=== PATIENT | male | born 1975 | race Hispanic/Latino ===

== ENCOUNTER 2021-09-05 15:31 | Emergency (ER) | payer SELFPAY ==
[2021-09-05 16:19] LABS: Hematocrit 38.4 % (42-50); Hemoglobin 12.7 gm/dl (12.5-18.0); Mean Cell Volume 86.5 fl (78-100); Mean Corpuscular Hemoglobin 28.6 pg (26-32); Mean Corpuscular Hgb Concent. 33.1 g/dl (32-36); Mean Platelet Volume 10.1 fl (7.5-11.0); Platelet Count 213 K/mm3 (150-450); Red Blood Count 4.44 M/mm3 (4.1-5.6); Red Cell Distribution Width 13.1 % (11.5-14.0); White Blood Count 7.1 K/mm3 (4.0-10.5)
--- NOTE | 2021-09-05 16:36 | XRAY ---
Indication: Trauma. Comparison: None 3 view right wrist demonstrates mildly displaced and posterior angulated comminuted fracture distal radius with intra-articular extension and soft tissue swelling. Elsewhere osteopenia and mild 1st metacarpal multangular degenerative changes.
[2021-09-05 16:55] LABS: ALBUMIN 4.4 g/dL (3.5-5.0); ALKALINE PHOSPHATASE 85 U/L (38-126); AMYLASE 85 U/L (30-110); ANION GAP 11.7 MEQ/L (5-15); BLOOD UREA NITROGEN 16 mg/dL (9-20); CHLORIDE 102 mmol/L (98-107); Calcium 9.2 mg/dL (8.4-10.2); Carbon Dioxide 29 mmol/L (22-30); Creatinine 1 0.83 mg/dL (0.66-1.25); EST GLOMERULAR FILTRATION RATE > 60.0 ML/MIN; ETHYL ALCOHOL < 10 mg/dL (0-10); Glucose 139 mg/dL (74-106); LIPASE 160 U/L (23-300); Potassium 3.6 mmol/L (3.5-5.1); SGOT/AST 38 U/L (17-59); SGPT/ALT 22 U/L (0-50); SODIUM 140 mmol/L (137-145); Total Protein 7.3 g/dL (6.3-8.2)
--- NOTE | 2021-09-05 16:55 | ERPHSYRPT ---
- History of Present Illness Source: patient, interpreter translator Exam Limitations: language barrier Patient Subjective Stated Complaint: pt states he fell 8 feet and landed. fell off roof and landed on back and right arm. no loc, no neck pain, co pain to right wrist and pelvis Triage Nursing Assessment: pt alert, resp easy, face mask in place, abd soft, has deformity to right wrist with abrasion, no other bruising or abrasions noted Physician History: 46 yo pt brought in by private vehicle after falling off a roof which he states through interpreter translator complains of R wrist pain and lumbar pain. Pt denies LOC-head injury/C-Tspine pain/chest pain/abdominal pain/LE pain. Method of Injury: fall (Off roof 8ft) Occurred: just prior to arrival Where Injury Occurred: work Loss of Consciousness: no loss of consciousness Pain Location: wrist (R), back (Lumbar) Severity of Pain-Max: moderate Severity of Pain-Current: moderate Modifying Factors: Improves With: movement Associated Symptoms: back pain, extremity injury, No abdominal pain, No confusion, No chest pain, No dizziness, No headache, No lightheadedness, No m uscle spasms, No nausea, No neck pain, No ringing in ears, No seizures, No shortness of breath, No slurred speech, No trouble walking, No vomiting, No vision changes Allergies/Adverse Reactions: Penicillins Allergy (Verified 09/05/21 16:04) Home Medications: No Reportable Medications [No Reported Medications] 09/05/21 [History] Hx Tetanus, Diphtheria Vaccination/Date Given: No Hx Influenza Vaccination/Date Given: No Hx Pneumococcal Vaccination/Date Given: No Immunizations Up to Date: No (unknown) Travel Risk - International Travel Have you traveled outside of the country in past 3 weeks: No - Coronavirus Screening Are you exhibiting any of the following symptoms?: No Close contact with a COVID-19 positive Pt in past 14-21 Days: No - Vaccine Status Have you recieved a Covid-19 vaccination: No - Review of Systems Constitutional: No Symptoms Eyes: No Symptoms Ears, Nose, & Throat: No Symptoms Respiratory: No Symptoms Cardiac: No Symptoms Abdominal/Gastrointestinal: No Symptoms Genitourinary Symptoms: No Symptoms Skin: No Symptoms Neurological: No Symptoms Psychological: No Symptoms Endocrine: No Symptoms Hematologic/Lymphatic: No Symptoms Immunological/Allergic: No Symptoms All Other Systems: Reviewed and Negative - Past Medical History Pertinent Past Medical History: No Neurological History: No Pertinent History ENT History: No Pertinent History Cardiac History: No Pertinent History Respiratory History: No Pertinent History Endocrine Medical History: No Pertinent History Musculoskeletal History: No Pertinent History GI Medical History: No Pertinent History History: No Pertinent History Psycho-Social History: No Pertinent History Male Reproductive Disorders: No Pertinent History - Past Surgical History Past Surgical History: No Neuro Surgical History: No Pertinent History Cardiac: No Pertinent History Respiratory: No Pertinent History Gastrointestinal: No Pertinent History Genitourinary: No Pertinent History Musculoskeletal: No Pertinent History Male Surgical History: No Pertinent History - Social History Smoking Status: Never smoker Exposure to second hand smoke: No Drug Use: none Patient Lives Alone: No Significant Family History: no pertinent family hx Physical Exam - Nursing Vital Signs Nursing Vital Signs: Initial Vital Signs Temperature 97.9 F 09/05/21 18:18 Pulse Rate 89 09/05/21 18:18 Respiratory Rate 20 09/05/21 18:18 Blood Pressure 115/71 09/05/21 18:18 O2 Sat by Pulse Oximetry 98 09/05/21 18:18 Pain Scale Pain Intensity 4 WNL - [place] Coma Score Best Eye Response ([place]): (4) open spontaneously Best Verbal Response ([place]): (5) oriented Best Motor Response ([place]): (6) obeys commands [place] Total: 15 - Physical Exam General Appearance: mild distress (Due to pain) Head Injury: no evidence of injury Eye Exam: bilateral eye: normal inspection, PERRL, EOMI ENT Exam: airway nml, No evidence of ENT injury, No dental injury, No nml ext.inspection, No clear fluid (ears), No clear fluid (nose), No hemotympanum Neck Exam: supple, trachea midline (C-spine NTTP) Respiratory/Chest Exam: chest tenderness, normal breath sounds, respiratory distress Cardiovascular Exam: normal heart sounds, regular rate/rhythm, normal peripheral pulses, No murmur Gastrointestinal Exam: soft, normal bowel sounds Back Exam: vertebral tenderness (Mid/inferior L-spine ttp) Extremity Exam: evidence of injury (R wrist w obvious deformity) Peripheral Pulses: carotid (R): 2+, carotid (L): 2+ Neurologic Exam: alert, oriented x 3, cooperative, cad librarian II-XII nml as tested, normal mood/affect, nml cerebellar function, nml station & gait, sensation nml, No motor deficits, No sensory deficit Skin Exam: normal color, warm, dry - Course Nursing assessment & vital signs reviewed: Yes - Radiology Exams Wrist X-ray Interpretation: Discussed w/ radiologist (R wrist distal comminuted radius fx) - CT Exams Head CT Interpretation: Discussed w/radiologist (WNL) Cervical Spine CT Interpretation: Discussed w/radiologist (No fx/dislocation) Chest CT Interpretation: Discussed w/radiologist (NAD) Abdomen/Pelvis CT Interpretation: Discussed w/radiologist (R inferior pubic rami fx/Small L2 anterior-superior vertebral body fx) Ordered Tests: Active Orders 24 hr Category Date Time Status ABDOMEN AND PELVIS W CONTRAST [CT] Stat Exams 09/05/21 15:57 Completed CERVICAL SPINE WO CONTRAST [CT] Stat Exams 09/05/21 15:59 Completed CHEST WITH CONTRAST [CT] Stat Exams 09/05/21 15:58 Completed HEAD WITHOUT CONTRAST [CT] Stat Exams 09/05/21 15:59 Completed WRIST (MIN 3 VIEWS) Stat Exams 09/05/21 Completed AMYLASE Stat Lab 09/05/21 16:45 Completed CBC W DIFF Stat Lab 09/05/21 15:59 Completed CMP Stat Lab 09/05/21 16:45 Completed ETHYL ALCOHOL Stat Lab 09/05/21 16:45 Completed LIPASE Stat Lab 09/05/21 16:45 Completed Manual Differential NC Stat Lab 09/05/21 15:59 Completed UA W/RFX UR CULTURE Stat Lab 09/05/21 18:45 Completed Urine Triage Profile Stat Lab 09/05/21 18:45 Completed Medication Summary Discontinued Medications Generic Name Dose Route Start Last Admin Trade Name Fei PRN Reason Stop Dose Admin Fentanyl Citrate 50 mcg 09/05/21 17:16 09/05/21 17:22 Fentanyl Citrate 100 Mcg/2 Ml* Vial IV 09/05/21 17:17 50 mcg STAT ONE Administration Fentanyl Citrate Confirm 09/05/21 17:19 Fentanyl Citrate 100 Mcg/2 Ml* Vial Administered 09/05/21 17:20 Dose 100 mcg .ROUTE .STK-MED ONE Ondansetron HCl 4 mg 09/05/21 17:16 09/05/21 17:25 Ondansetron Hcl 4 Mg/2 Ml Vial IV 09/05/21 17:17 4 mg STAT ONE Administration Ondansetron HCl Confirm 09/05/21 17:19 Ondansetron Hcl 4 Mg/2 Ml Vial Administered 09/05/21 17:20 Dose 4 mg .ROUTE .K-MED ONE Lab/Rad Data: Laboratory Result Diagrams 09/05/21 15:59 09/05/21 16:45 Laboratory Results 09/05/21 09/05/21 09/05/21 Range/Units 18:45 18:45 16:45 WBC (4.0-10.5) K/mm3 RBC (4.1-5.6) M/mm3 Hgb (12.5-18.0) gm/dl Hct (42-50) % MCV (78-100) fl MCH (26-32) pg MCHC (32-36) g/dl RDW (11.5-14.0) % Plt Count (150-450) K/mm3 MPV (7.5-11.0) fl Segmented Neutrophils (36.-66.) % Lymphocytes (Manual) (24-44) % Monocytes (Manual) (0.0-12.0) % Platelet Estimate (NORMAL) RBC Morphology Sodium 140 (137-145) mmol/L Potassium 3.6 (3.5-5.1) mmol/L Chloride 102 (98-107) mmol/L Carbon Dioxide 29 (22-30) mmol/L Anion Gap 11.7 (5-15) MEQ/L BUN 16 (9-20) mg/dL Creatinine 0.83 (0.66-1.25) mg/dL Estimated GFR > 60.0 ML/MIN Glucose 139 H (74-106) mg/dL Calcium 9.2 (8.4-10.2) mg/dL Total Bilirubin 0.60 (0.2-1.3) mg/dL AST 38 (17-59) U/L ALT 22 (0-50) U/L Alkaline Phosphatase 85 (38-126) U/L Serum Total Protein 7.3 (6.3-8.2) g/dL Albumin 4.4 (3.5-5.0) g/dL Amylase 85 (30-110) U/L Lipase 160 (23-300) U/L Urine Color YELLOW (YELLOW) Urine Appearance CLEAR (CLEAR) Urine pH 6.0 (5-6) Ur Specific Jeannette 1.047 (1.005-1.025) Urine Protein NEGATIVE (Negative) Urine Ketones NEGATIVE (NEGATIVE) Urine Blood SMALL (0-5) Christian/ul Urine Nitrite NEGATIVE (NEGATIVE) Urine Bilirubin NEGATIVE (NEGATIVE) Urine Urobilinogen NEGATIVE (0-1) mg/dL Ur Leukocyte Esterase NEGATIVE (NEGATIVE) Urine WBC (Auto) NONE (0-5) /HPF Urine RBC (Auto) 3-5 (0-2) /HPF U Epithel Cells (Auto) NONE (FEW) /HPF Urine Bacteria (Auto) NONE (NEGATIVE) /HPF Urine Mucus (Auto) SLIGHT (NEGATIVE) /HPF Urine Culture Reflexed NO (NO) Urine Glucose NEGATIVE (NEGATIVE) mg/dL Urine Opiates Level NEGATIVE (NEGATIVE) Ur Methadone NEGATIVE (NEGATIVE) Urine Barbiturates NEGATIVE (NEGATIVE) Ur Phencyclidine (PCP) NEGATIVE (NEGATIVE) Urine Amphetamine NEGATIVE (NEGATIVE) U Benzodiazepine Level NEGATIVE (NEGATIVE) Urine Cocaine NEGATIVE (NEGATIVE) Urine Marijuana (THC) NEGATIVE (NEGATIVE) Ethyl Alcohol < 10 (0-10) mg/dL 09/05/21 Range/Units 15:59 WBC 7.1 (4.0-10.5) K/mm3 RBC 4.44 (4.1-5.6) M/mm3 Hgb 12.7 (12.5-18.0) gm/dl Hct 38.4 L (42-50) % MCV 86.5 (78-100) fl MCH 28.6 (26-32) pg MCHC 33.1 (32-36) g/dl RDW 13.1 (11.5-14.0) % Plt Count 213 (150-450) K/mm3 MPV 10.1 (7.5-11.0) fl Segmented Neutrophils 73 H (36.-66.) % Lymphocytes (Manual) 25 (24-44) % Monocytes (Manual) 2 (0.0-12.0) % Platelet Estimate NORMAL (NORMAL) RBC Morphology NORMAL Sodium (137-145) mmol/L Potassium (3.5-5.1) mmol/L Chloride (98-107) mmol/L Carbon Dioxide (22-30) mmol/L Anion Gap (5-15) MEQ/L BUN (9-20) mg/dL Creatinine (0.66-1.25) mg/dL Estimated GFR ML/MIN Glucose (74-106) mg/dL Calcium (8.4-10.2) mg/dL Total Bilirubin (0.2-1.3) mg/dL AST (17-59) U/L ALT (0-50) U/L Alkaline Phosphatase (38-126) U/L Serum Total Protein (6.3-8.2) g/dL Albumin (3.5-5.0) g/dL Amylase (30-110) U/L Lipase (23-300) U/L Urine Color (YELLOW) Urine Appearance (CLEAR) Urine pH (5-6) Ur Specific Jeannette (1.005-1.025) Urine Protein (Negative) Urine Ketones (NEGATIVE) Urine Blood (0-5) Christian/ul Urine Nitrite (NEGATIVE) Urine Bilirubin (NEGATIVE) Urine Urobilinogen (0-1) mg/dL Ur Leukocyte Esterase (NEGATIVE) Urine WBC (Auto) (0-5) /HPF Urine RBC (Auto) (0-2) /HPF U Epithel Cells (Auto) (FEW) /HPF Urine Bacteria (Auto) (NEGATIVE) /HPF Urine Mucus (Auto) (NEGATIVE) /HPF Urine Culture Reflexed (NO) Urine Glucose (NEGATIVE) mg/dL Urine Opiates Level (NEGATIVE) Ur Methadone (NEGATIVE) Urine Barbiturates (NEGATIVE) Ur Phencyclidine (PCP) (NEGATIVE) Urine Amphetamine (NEGATIVE) U Benzodiazepine Level (NEGATIVE) Urine Cocaine (NEGATIVE) Urine Marijuana (THC) (NEGATIVE) Ethyl Alcohol (0-10) mg/dL - Progress Progress: improved Progress Note: 09/05/21 18:[address] Ramos 50umg IV Fentanyl/4mg IV Zofran 09/05/21 20:35 Velcro splint R wrist per nursing/NVI Counseled pt/family regarding: lab results, diagnosis, rad results - Departure Departure Disposition: Transfer Clinical Impression: Radius distal fracture, Pubic ramus fracture, Lumbar vertebral fracture Condition: Stable Critical Care Time: Yes Critical Care Time(excluding separately billable procedures): Critical 30-74 mins Referrals: DOCTOR,NO FAMILY [Primary Care Provider] - Follow up/PCP as directed
[2021-09-05] MEDS ORDERED: SUBLIMAZE 100 MCG/2 ML IV ONE (17:16)
[2021-09-05] MEDS ORDERED: Zofran 4 MG/2 ML VIAL IV ONE (17:16)
[2021-09-05] MEDS ORDERED: SUBLIMAZE 100 MCG/2 ML ONE (17:19)
[2021-09-05] MEDS ORDERED: Zofran 4 MG/2 ML VIAL ONE (17:19)
--- NOTE | 2021-09-05 17:25 | XRAY ---
Indication: Status post fall 8 feet. Multiple contiguous axial images obtained through the cervical spine. Sagittal and coronal reformatted images obtained. Comparison: None Axial images negative for acute fracture, suspicious bony lesions, or spinal canal stenosis. Minimal C3-C7 degenerative endplate spurring and mild multilevel bilateral degenerative facet hypertrophy. Sagittal and coronal reformatted images demonstrates lordotic straightening, positional versus paraspinal spasm. Disc spaces maintained. No acute compression fracture, subluxation, or jumped facet. Normal appearing craniocervical junction. Visualized noncontrasted soft tissues are unremarkable. Impression: Multilevel degenerative changes. Remaining CT cervical spine is negative.
--- NOTE | 2021-09-05 17:28 | XRAY ---
Indication: Status post fall 8 feet. Multiple contiguous axial images obtained through the head without contrast. Comparison: None Normal appearing brain parenchyma, ventricles, and bony calvarium. Paranasal sinuses and mastoid air cells are clear. Impression: Normal CT head without contrast exam.
--- NOTE | 2021-09-05 17:29 | XRAY ---
Indication: Status post fall 8 feet. Multiple contiguous axial images obtained through the chest using 100 cc Isovue 370 contrast. Comparison: None There is a 4.3 x 4.0 cm left T5 perineural cyst. Minimal bibasilar dependent atelectasis. No suspicious pulmonary mass, infiltrate, effusion, or pneumothorax. Heart not enlarged. Aorta is normal in course and caliber. No pathologic mediastinal/hilar lymphadenopathy. Bony thorax intact with mild flowing osteophytes throughout the spine. Impression: 1. Large left T5 perineural cyst. 2. Remaining CT chest with contrast exam is negative.
--- NOTE | 2021-09-05 17:35 | XRAY ---
Indication: Status post fall 8 feet. Multiple contiguous axial images obtained through the abdomen and pelvis using 100 cc Isovue 370 contrast. Comparison: None Stomach is distended with food/fluid. Noncontrasted stomach and bowel loops nonobstructed. Mild diffuse scattered colonic fecal debris throughout including rectum. No free fluid/air. Remaining liver, gallbladder, pancreas, spleen, adrenal glands, kidneys, ureters, bladder, and aorta appear unremarkable. No pathologic retroperitoneal lymphadenopathy. Tiny minimally displaced corner fracture involving the anterior superior L2 vertebral body. Also nondisplaced fracture involving the right inferior pubic ramus. Impression: 1. Fractures involving anterosuperior L2 vertebral body and right inferior pubic ramus as detailed. 2. Mild diffuse fecal stasis. 3. Remaining CT abdomen/pelvis with contrast exam is negative.
[2021-09-05 18:57] LABS: Appearance CLEAR (CLEAR); Bilirubin NEGATIVE (NEGATIVE); Blood SMALL Ery/ul (0-5); Glucose NEGATIVE (NEGATIVE); Ketones NEGATIVE (NEGATIVE); Leukocyte Esterase NEGATIVE (NEGATIVE); Mucus SLIGHT /HPF (NEGATIVE); Nitrite NEGATIVE (NEGATIVE); Protein,Urine Dip NEGATIVE (Negative); Specific Gravity 1.047 (1.005-1.025); Urobilinogen NEGATIVE mg/dL (0-1)
[2021-09-05 19:02] VITALS: BP 110/69; PULSE 93; O2SAT 98
[2021-09-05 19:21] LABS: Amphetamine,Urine NEGATIVE (NEGATIVE); Barbiturate,Urine NEGATIVE (NEGATIVE); Benzodiazepine,Urine NEGATIVE (NEGATIVE); Cocaine,Urine NEGATIVE (NEGATIVE); Methadone,Urine NEGATIVE (NEGATIVE); Opiate,Urine NEGATIVE (NEGATIVE); PCP,Urine NEGATIVE (NEGATIVE); THC,Urine NEGATIVE (NEGATIVE)
[2021-09-05 19:59] LABS: Lymphocytes 25 % (24-44); Monocyte 2 % (0.0-12.0); Neutrophils 73 % (36.-66.); Platelet Estimate NORMAL (NORMAL); Total Cells Counted 100
== END 2021-09-05 19:12 | disposition short-term general hospital (02) ==
LOC: ED 15:31
DX: S32.028A Other fracture of second lumbar vertebra, initial encounter for closed fracture (principal); S32.591A Other specified fracture of right pubis, initial encounter for closed fracture; S52.501A Unspecified fracture of the lower end of right radius, initial encounter for closed fracture; W13.2XXA Fall from, out of or through roof, initial encounter; Y99.0 Civilian activity done for income or pay
CPT/HCPCS: 36000; 36415; 70450; 71260; 72125; 73110; 74177; 80053; 80307; 81001; 82150; 83690; 85025; 96374; 96375; 99285; 99291; J2405; J3010; L3908; G0480